=== PATIENT | female | born 1965 | race Caucasian/White ===

== ENCOUNTER → 2017-09-17 | Outpatient (CLI) | payer BC | LOC: LAB 09:53 → LAB SHORT 09:53 | PROVIDERS: Nurse Practitioner | DX: Z01.419 Encounter for gynecological examination (general) (routine) without abnormal findings (principal) | CPT/HCPCS: G0145 ==

== ENCOUNTER 2018-04-08 11:22 | Day surgery (SDC) | payer BC ==
[~2018-04-08] VITALS: Ht 165.1 cm; Wt 105.0 kg
--- NOTE | 2018-04-08 13:24 | NUR ---
04/08/18 1324 Patty Callejas PT. COUGHING 1317, PT. SUCTIONED FOR SMALL AMT. CLEAR SECRETIONS.
== END 2018-04-08 14:05 | disposition home or self-care (01) ==
LOC: ORSCSDS 11:22
PROVIDERS: Internal Medicine Gastroenterology
PROC: 0DB68ZX Excision of Stomach, Via Natural or Artificial Opening Endoscopic, Diagnostic (ICD-10-PCS; principal; 2018-04-08 13:00)
PROC: 0DB58ZX Excision of Esophagus, Via Natural or Artificial Opening Endoscopic, Diagnostic (ICD-10-PCS; principal; 2018-04-08 13:00)
DX: R10.11 Right upper quadrant pain (principal); K21.0 Gastro-esophageal reflux disease with esophagitis; K29.70 Gastritis, unspecified, without bleeding; K29.80 Duodenitis without bleeding; K44.9 Diaphragmatic hernia without obstruction or gangrene; Z87.891 Personal history of nicotine dependence; Z79.899 Other long term (current) drug therapy; E66.01 Morbid (severe) obesity due to excess calories
CPT/HCPCS: 88305; 88312; 88342; J7120

== ENCOUNTER 2018-05-12 10:43 | Day surgery (SDC) | payer BC ==
[~2018-05-12] VITALS: Ht 165.1 cm; Wt 100.2 kg
[~2018-05-12 10:43] MED LIST: Advil200 M1 PO; IBUP400 PO; OMEPRAZOLE MAGN20 MG PO; SUCR1 PO
--- NOTE | 2018-05-12 11:43 | NUR ---
05/12/18 1143 Wilmer Hein OK PER DR SHAH/DR NIELSEN TO PROCEDURE WITH NURSE SEDATION.
--- NOTE | 2018-05-12 12:06 | NUR ---
05/12/18 1206 Wilmer Hein AT START OF PROCEDURE PT O2 DROPPED DOWN TO LOW 90S ON 3L. INCREASED O2 TO 5L. PT MAINTAINED MID-HIGH 90S. VSS.
== END 2018-05-12 12:52 | disposition home or self-care (01) ==
LOC: ORSCSDS 10:43
PROVIDERS: Internal Medicine Gastroenterology
PROC: 0DBK8ZX Excision of Ascending Colon, Via Natural or Artificial Opening Endoscopic, Diagnostic (ICD-10-PCS; principal; 2018-05-12 12:00)
PROC: 0DBN8ZX Excision of Sigmoid Colon, Via Natural or Artificial Opening Endoscopic, Diagnostic (ICD-10-PCS; principal; 2018-05-12 12:00)
DX: Z12.11 Encounter for screening for malignant neoplasm of colon (principal); D12.2 Benign neoplasm of ascending colon; K63.5 Polyp of colon; K57.30 Diverticulosis of large intestine without perforation or abscess without bleeding; Z87.891 Personal history of nicotine dependence; Z79.899 Other long term (current) drug therapy
CPT/HCPCS: 88305; J7120

== ENCOUNTER 2019-02-25 01:44 | Emergency (ER) | payer BC ==
[~2019-02-25] VITALS: Ht 165.1 cm; Wt 102.1 kg
[2019-02-25 02:38] LABS: Source, Urine Clean Catch
[2019-02-25 02:40] LABS: Bilirubin, Urine Neg (Neg); Blood, Urine 2+ (Neg); Glucose Qualitative, Urine Neg (Neg); Ketones, Urine Neg (Neg); Leukocyte Esterase, Urine Neg (Neg); Nitrite, Urine Neg (Neg); Protein, Urine Neg (Neg); Urobilinogen, Urine NORM (Normal); pH, Urine 6.5 (5.0-8.0)
[2019-02-25 02:41] LABS: Appearance, Urine Clear (Clear); Color, Urine Yellow (P-Yellow)
[2019-02-25 02:46] LABS: Bacteria Mod /hpf; Red Blood Cells, Urine 0-2 /hpf (0-2); Squamous Epithelial Cells Few /hpf (Few); White Blood Cells, Urine 0-2 /hpf (0-5)
[2019-02-25 02:58] LABS: BASOPHILS ABSOLUTE AUTO 0.05 K/mm3 (0.00-0.23); BASOPHILS PERCENT AUTO 0 % (0-2); EOSINOPHILS ABSOLUTE AUTO 0.36 K/mm3 (0.00-0.68); EOSINOPHILS PERCENT AUTO 3 % (0-6); Hematocrit 39.5 % (33.0-51.0); Hemoglobin 12.8 g/dL (11.5-16.0); IMMATURE GRAN ABSOLUTE AUTO 0.04 K/mm3 (0.00-0.10); IMMATURE GRAN PERCENT AUTO 0 % (0-1); LYMPHOCYTES ABSOLUTE AUTO 2.73 K/mm3 (0.84-5.20); LYMPHOCYTES PERCENT AUTO 23 % (21-46); MONOCYTES ABSOLUTE AUTO 0.97 K/mm3 (0.16-1.47); MONOCYTES PERCENT AUTO 8 % (4-13); Mean Corpuscular HGB 26.5 pg (26.0-34.0); Mean Corpuscular HGB Conc 32.4 g/dL (31.5-36.5); Mean Corpuscular Volume 82 fL (80-100); Mean Platelet Volume 10.1 fL (9.1-12.4); NEUTROPHILS ABSOLUTE AUTO 7.66 K/mm3 (1.96-9.15); NEUTROPHILS PERCENT AUTO 65 % (41-73); Platelet Count 389 K/mm3 (150-400); RDW Coefficient Variation 15.1 % (11.7-14.2); RDW Standard Deviation 45.5 fL (35.1-46.3); Red Blood Cell Count 4.83 M/mm3 (3.80-5.20); White Blood Cell Count 11.81 K/mm3 (4.00-11.30)
[2019-02-25 03:16] LABS: Alanine Aminotransfer (ALT/SGP 19 U/L (12-78); Albumin, Blood 3.5 g/dL (3.4-5.0); Albumin/Globulin Ratio 1.1 (0.8-1.8); Alk Phos 80 U/L (50-136); Anion Gap 6 mmol/L (6-16); Aspartate Aminotrans (AST/SGOT 13 U/L (12-37); Bilirubin, Total 0.3 mg/dL (0.1-1.0); Blood Urea Nitrogen 11 mg/dL (8-24); Bun/Creatinine Ratio 18.4 (12.0-20.0); CO2, Blood 24 mmol/L (21-32); Calcium, Blood 8.6 mg/dL (8.5-10.1); Chloride, Blood 110 mmol/L (98-108); Globulin, Blood 3.2 g/dL (2.2-4.0); Glomerular Filtration Rate >60 (60-); Glucose, Blood 127 mg/dL (70-99); Potassium, Blood 3.9 mmol/L (3.5-5.5); Sodium, Blood 140 mmol/L (136-145); Total Protein, Blood 6.7 g/dL (6.4-8.2)
== END 2019-02-25 04:23 | disposition home or self-care (01) ==
LOC: ER 01:44
PROVIDERS: Emergency Medicine
DX: R10.9 Unspecified abdominal pain (principal); Z87.891 Personal history of nicotine dependence
CPT/HCPCS: 36415; 74176; 80053; 81001; 83690; 85025; 87086; 96374; 96375; 99284-25; A9270; J1170; J1885; J2405

== ENCOUNTER → 2020-05-26 | Outpatient (CLI) | payer BC ==
[~2020-05-26] MED LIST changes: +ACET500 PO; +ALORA1 EA10 TOP; -Advil200 M1 PO; +DOCU100 PO; +IBUP200 PO; +OXAYDO5 M1 PO
== END | disposition home or self-care (01) ==
LOC: LAB SHORT 13:24 → LAB 13:24
DX: N92.0 Excessive and frequent menstruation with regular cycle (principal)
CPT/HCPCS: 88305

== ENCOUNTER 2020-08-28 06:07 | Day surgery (SDC) | payer BC ==
[~2020-08-28] VITALS: Ht 162.6 cm; Wt 94.3 kg
[~2020-08-28 06:07] MED LIST changes: -ACET500 PO; -ALORA1 EA10 TOP; -DOCU100 PO; -OXAYDO5 M1 PO
--- NOTE | 2020-08-28 10:24 | NUR ---
PT ARRIVED TO UNIT AT APROX 1015 FROM PACU, TRANSFERED FROM [facility] TO BED W/ASSIST OF SLIDER SHEET. LAP SITES X'S 3 W/STERI STRIPS C/D/I. TOPHER PAD W/SCANT AMT BLOOD PRESENT. PT REPORTS PAIN 4/10 BUT STATES IT IS TOLERABLE. PT DENIES N/V, GIVEN CLEAR LIQUIDS AND WILL ADVANCE TOLERATED.
[2020-08-28] MEDS ORDERED: ACET500 PO (14:16)
[2020-08-28] MEDS ORDERED: DOCU100 PO (14:16)
[2020-08-28] MEDS ORDERED: OXAYDO5 M1 PO (14:17)
[2020-08-28] MEDS ORDERED: ALORA1 EA10 TOP (14:18)
--- NOTE | 2020-08-28 15:41 | NUR ---
DISCHARGE PT DISCHARGED HOME FROM UNIT AT APROX 1540. PT VOIDING WITH PVR LESS THAN 100, PAIN MANAGED WITH PO MEDICATION, TOLERATING REGUALR DIET. IV REMOVED. PT GIVEN WRITTEN AND VERBAL DISCHARGE INSTRUCTIONS AND VERBALIZED UNDERSTANDING. WHEELCHAIR TO CAR.
--- NOTE | 2020-08-29 09:18 | NUR ---
08/29/20 0918 Marleen Tsang VERIFICTIONS: EDIT CHART.
== END 2020-08-28 15:15 | disposition home or self-care (01) ==
LOC: ORSCMMR 06:07 → ORD 07:30 → ORSCMMR 07:30 → SURS 10:04 → ORSCMMR 10:04 → SURS 15:15 → ORSCMMR 15:15
PROVIDERS: Obstetrics & Gynecology
PROC: 0UT9FZZ Resection of Uterus, Via Natural or Artificial Opening With Percutaneous Endoscopic Assistance (ICD-10-PCS; principal; 2020-08-28 07:30)
PROC: 0UT7FZZ Resection of Bilateral Fallopian Tubes, Via Natural or Artificial Opening With Percutaneous Endoscopic Assistance (ICD-10-PCS; principal; 2020-08-28 07:30)
PROC: 0UT2FZZ Resection of Bilateral Ovaries, Via Natural or Artificial Opening With Percutaneous Endoscopic Assistance (ICD-10-PCS; principal; 2020-08-28 07:30)
DX: D25.9 Leiomyoma of uterus, unspecified (principal); N92.0 Excessive and frequent menstruation with regular cycle; N80.0 Endometriosis of uterus; R10.2 Pelvic and perineal pain; E66.9 Obesity, unspecified; Z68.35 Body mass index [BMI] 35.0-35.9, adult
CPT/HCPCS: 84703; 88307; A9270; J0171; J0690; J1100; J1885; J2001; J2250; J2370; J2405; J2704; J3010; J7120

== ENCOUNTER → 2020-11-27 | Outpatient (CLI) | payer BC ==
[~2020-11-27] MED LIST changes: +ACET500 PO; +ALORA1 EA10 TOP; +DOCU100 PO; +OXAYDO5 M1 PO
== END | disposition home or self-care (01) ==
LOC: LAB 11:22 → LAB SHORT 11:22
DX: D22.5 Melanocytic nevi of trunk (principal)
CPT/HCPCS: 88305

== ENCOUNTER 2022-01-02 08:21 | Day surgery (SDC) | payer BC ==
[~2022-01-02] VITALS: Ht 165.1 cm; Wt 99.3 kg
--- NOTE | 2022-01-02 09:55 | NUR ---
01/02/22 0955 SYED DOYLE 5MLS OF INJECTABLE NS MIXED WITH 5MLS OF LIDOCAINE 2% WITH EPI 1:100,000 TO CREATE A LOCAL SOLUTION OF LIDOCAINE 1% WITH EPI 1:200,000. LOCAL POURED ONTO STERILE FIELD FOR USE DURING CASE. 6MLS INJECTED INTO SOFT PALATE BY
--- NOTE | 2022-01-02 10:37 | NUR ---
01/02/22 DELONTE SQUIRES PT PLACED ON 15L O2 VIA FACE TENT WHEN OUT OF OR BY DR. HERNÁNDEZ. TRIAL TO 10L = 97%. WILL DECREASE TO 5L TRIAL
--- NOTE | 2022-01-02 10:57 | NUR ---
01/02/22 4187 DELONTE CAMPBELL PT STATES THAT SHE WOULD RATHER NOT TAKE ANY IV PAIN MEDICATION. SHE STATES THAT SHE BROUGHT MOTRIN 800MG THAT SHE BROUGHT WITH HER. SHE GRABBED IT OUT OF HER WALLET AND TOOK. SHE STATES THAT WORKS WELL FOR HER. SHE BROUGHT AN OXYCODONE THAT DR. RANKIN PRESCRIBED WITH HER BUT STATES SHE WILL JUST TAKE TAKE THE MOTRIN
== END 2022-01-02 11:26 | disposition home or self-care (01) ==
LOC: ORSCSDS 08:21
PROVIDERS: Otolaryngology
PROC: 0CB Mouth and Throat, Excision (ICD-10-PCS; principal; 2022-01-02 10:00)
PROC: 0CB70ZZ Excision of Tongue, Open Approach (ICD-10-PCS; principal; 2022-01-02 10:00)
DX: D10.5 Benign neoplasm of other parts of oropharynx (principal); D10.1 Benign neoplasm of tongue; Z87.891 Personal history of nicotine dependence; K21.9 Gastro-esophageal reflux disease without esophagitis; E66.9 Obesity, unspecified; Z68.36 Body mass index [BMI] 36.0-36.9, adult; Z79.899 Other long term (current) drug therapy
CPT/HCPCS: 88305; A9270; J1100; J2250; J2405; J2704; J2710; J3010; J7120